=== PATIENT | female | born 1995 | race Caucasian/White ===

== ENCOUNTER 2017-08-04 18:24 | Inpatient (IN) | payer OTHER, MEDICAID ==
[2017-08-04 19:32] LABS: ABSOLUTE LYMPHOCYTES (AUTO) 1.3 10^3/uL (0.5-4.7); ABSOLUTE MONOCYTES (AUTO) 0.7 10^3/uL (0.1-1.4); ABSOLUTE NEUT (AUTO) 8.6 10^3/uL (1.7-8.2); BASOPHILS % (AUTO) 0.2 % (0-2); EOSINOPHILS % (AUTO) 0.1 % (0-6); HEMATOCRIT 33.5 % (36.0-47.0); HEMOGLOBIN 11.3 g/dL (12.0-15.5); LYMPHOCYTES % (AUTO) 12.5 % (13-45); MEAN CORPUSCULAR HEMOGLOBIN 32.7 pg (27.0-33.4); MEAN CORPUSCULAR HGB CONC 33.6 g/dL (32.0-36.0); MEAN CORPUSCULAR VOLUME 97 fl (80-97); MONOCYTES % (AUTO) 6.7 % (3-13); PLATELET COUNT 264 10^3/uL (150-450); RED BLOOD COUNT 3.45 10^6/uL (3.72-5.28); RED CELL DISTRIBUTION WIDTH 14.1 % (11.5-14.0); SEGMENTED NEUTROPHILS % (AUTO) 80.5 % (42-78); TOTAL CELLS COUNTED % (AUTO) 100 %; WHITE BLOOD COUNT 10.7 10^3/uL (4.0-10.5)
[2017-08-04 19:38] LABS: APPEARANCE,URINE CLOUDY; BILIRUBIN,URINE NEGATIVE (NEGATIVE); COLOR,URINE YELLOW; GLUCOSE, URINE NEGATIVE (NEGATIVE); KETONES,URINE NEGATIVE (NEGATIVE); LEUKOCYTE ESTERASE,URINE SMALL (NEGATIVE); NITRITE,URINE NEGATIVE (NEGATIVE); PROTEIN,URINE 30 mg/dL (NEGATIVE)
[2017-08-04] MEDS ORDERED: DINOPROSTONE 10 MG VAGINAL INSERT.SR PV PRN (19:38)
[2017-08-04] MEDS ORDERED: RINGERS SOLUTION,LACTATED 300 ML IV ONE (19:38)
[2017-08-04] MEDS ORDERED: RINGERS SOLUTION,LACTATED 1,000 ML IV PRN (19:38)
[2017-08-04] MEDS ORDERED: DINOPROSTONE 10 MG VAGINAL INSERT.SR ONE (19:42)
[2017-08-04 19:54] LABS: URINE AMPHETAMINES SCREEN NEGATIVE; URINE BARBITURATES SCREEN NEGATIVE; URINE BENZODIAZEPINES SCREEN NEGATIVE; URINE COCAINE SCREEN NEGATIVE; URINE MARIJUANA (THC) SCREEN NEGATIVE; URINE METHADONE SCREEN NEGATIVE; URINE PHENCYCLIDINE SCREEN NEGATIVE
--- NOTE | 2017-08-04 21:13 | Admission Physical ---
Datetime Report Generated by CPN: 08/04/2017 21:13 CURRENT ADMISSION Chief Complaint: Scheduled Induction of Labor Indication for Induction- Other: GDM Admit Impression : Induction of Labor Admit Plan: Admit to Unit; Initiate Labor Induction Protocol ALLERGIES Medication Allergies: No Medication Allergies: No Known Allergies (08/04/2017) Latex: No Latex Allergies OBSTETRICAL HISTORY EDC: 08/11/2017 00:00 : 1 Para: 0 Term: 0 : 0 SAB: 0 IAB: 0 Ectopic: 0 Livin Cesareans: 0 VBACs: 0 Multiple Births: 0 Gestational Diabetes: Yes Rh Sensitization: No Incompetent Cervix: No SKYLER: No Infertility: No ART Treatment: No Uterine Anomaly: No IUGR: No Hx Previous C/S: No Macrosomia: No Hx Loss/Stillborn: No PIH: No Hx : No Placenta Previa/Abruption: No Depression/PP Depression: No PTL/PROM: No Post Hemorrhage: No Current Procedures: Ultrasound; NST Obstetrical History Comments: G1 current SEE RECORDS Alcohol: No Marijuana : No Cocaine: No Other Illicit Drugs: No Cigarettes: Never Smoker. [id number] MEDICAL HISTORY Diabetes: Yes Diabetes Type: Gestational Diabetes Blood Transfusion: No Pulmonary Disease (Asthma, TB): No Breast Disease: No Hypertension: No Emergency Department Manager Surgery: No Heart Disease: No Hosp/Surgery: No Autoimmune Disorder: No Anesthetic Complications: No Kidney Disease: No Abnormal Pap Smear: No Neuro/Epilepsy: No Psychiatric Disorders: Yes Other Medical Diseases: No Hepatitis/Liver Disease: No Significant Family History: No Varicosities/Phlebitis: No Trauma/Violence : No Thyroid Dysfunction: No Medical History Comments: Previously on meds for depression. Not currently taking tachycardia during , pt reports increased hr up to 180 during , wore holter [id number], no concerns from sap sd analyst INFECTIOUS HISTORY Gonorrhea: No Genital Herpes: No Chlamydia: No Tuberculosis: No Syphilis: No Hepatitis: No HIV/AIDS Exposure: No Rash or Viral Illness: No HPV: No PHYSICAL EXAM General: Normal HEENT: Normal Neurologic: Normal Thyroid: Normal Heart: Normal Lungs: Normal Breast: Deferred Back: Normal Abdomen: Normal Genitourinary Exam: Normal Extremities: Normal DTRs: Normal Pelvic Type: Adequate Vital Signs: Reviewed VAGINAL EXAM Dilatation: 1 MEMBRANES Pooling: Negative Membranes: Intact FETUS A EGA: 39.0 Monitoring: External US Variability: Minimal - Undetectable to <=5bpm Decelerations: None FHR Category: Category I PLANS FOR LABOR AND DELIVERY Labor and Delivery: None Pain Management: Medications; Epidural Feeding Preference: Breast Benefit of Breast Feed Discussed: Yes Circumcision: N/A INFORMED CONSENT Signature: with User ID: [email or web address]
[2017-08-04] MEDS ORDERED: NALBUPHINE HCL INJ 10 MG/1 ML AMPULE INJ ONE (22:39)
[2017-08-04] MEDS ORDERED: PROMETHAZINE HCL INJ 25 MG/1 ML VIAL IV ONE (22:40)
[2017-08-04] MEDS ORDERED: NALBUPHINE HCL INJ 10 MG/1 ML AMPULE ONE (22:45)
[2017-08-04] MEDS ORDERED: PROMETHAZINE HCL INJ 25 MG/1 ML VIAL ONE (22:45)
[2017-08-05] MEDS ORDERED: ONDANSETRON HCL INJ/PF 4 MG/2 ML SDV ONE ×2 (01:21→10:22)
[2017-08-05] MEDS ORDERED: PROMETHAZINE HCL INJ 25 MG/1 ML VIAL IV ONE (01:43)
[2017-08-05] MEDS ORDERED: NALBUPHINE HCL INJ 10 MG/1 ML AMPULE INJ ONE (01:43)
[2017-08-05] MEDS ORDERED: PROMETHAZINE HCL INJ 25 MG/1 ML VIAL ONE (01:47)
[2017-08-05] MEDS ORDERED: NALBUPHINE HCL INJ 10 MG/1 ML AMPULE ONE (01:47)
[2017-08-05] MEDS ORDERED: ONDANSETRON HCL INJ/PF 4 MG/2 ML SDV IV ONE (10:19)
[2017-08-05] MEDS ORDERED: FENTANYL/BUPIVACAINE/NS/PF 200 MCG/100 ML RTUINJ EPI ONE (10:21)
[2017-08-05] MEDS ORDERED: EPHEDRINE SULFATE INJ 50 MG/1 ML AMPULE ONE (10:21)
[2017-08-05] MEDS ORDERED: BUPIVACAINE HCL 0.25 % INJ/PF (2.5 MG/1 ML) 30 ML VIAL ONE (10:21)
[2017-08-05] MEDS ORDERED: GLYBURIDE 1.25 MG PO SCH (10:30)
[2017-08-05] MEDS ORDERED: GLYBURIDE 2.5 MG TABLET PO ONE (11:00)
[2017-08-05] MEDS ORDERED: OXYTOCIN/NORMAL SALINE 20 UNIT/1,000 ML RTUINJ IV PRN ×2 (11:14→21:10)
[2017-08-05] MEDS ORDERED: MISOPROSTOL 0.2 MG TABLET ONE (11:17)
[2017-08-05] MEDS ORDERED: LIDOCAINE 1% INJ-PF (10 MG/ML) 30 ML SDV ONE (11:18)
[2017-08-05] MEDS ORDERED: OXYTOCIN/NORMAL SALINE 20 UNIT/1,000 ML RTUINJ ONE (11:18)
--- NOTE | 2017-08-05 14:54 | L&D Progress Notes ---
PROGRESS NOTES Datetime Report Generated by CPN: 08/05/2017 14:54 PROGRESS NOTE Impression: Reassuring Heart Rate Procedures: Sterile Vag Exam Plan: Continue Present Management; Induction Informed Consent Obtained: Vaginal Delivery Vital Signs : Reviewed Comment: Cooks cath out, SROM clear fluid Comfortable with epidural Continue with iol VAGINAL EXAM Dilatation: 5 Dilatation: 1 Effacement: 80 Station: 0 Contractions: every 2-3 MEMBRANES Pooling: Negative Membranes: Intact FETUS A FHR - Baseline: 130 Monitoring: External US Variability: Moderate 6-25bpm Accelerations: 15X15 Decelerations: None FHR Category: Category I : 39.0 SIGNATURE SIGNATURE: [id number];[id number] SIGNATURE: [id number] Assignment: Domi Hernandez MD Signature: with User ID: [email or web address] : with User ID: [email or web address]
[2017-08-05] MEDS ORDERED: CITRIC ACID/SODIUM CITRATE ORAL SOLN 15 ML UDCUP ONE (17:21)
[2017-08-05] MEDS ORDERED: GLYBURIDE 2.5 MG TABLET PO SCH (18:00)
[2017-08-05] MEDS ORDERED: IBUPROFEN 800 MG TABLET ONE (21:09)
[2017-08-05] MEDS ORDERED: MEASLES,MUMPS&RUBELLA VACC/PF 0.5 ML VIAL SUBCUT PRN (21:10)
[2017-08-05] MEDS ORDERED: ZOLPIDEM TARTRATE 5 MG TABLET PO PRN (21:10)
[2017-08-05] MEDS ORDERED: DIPH/PERTUSS(ACELL)/TETANUS VAC/PF 0.5 ML SYR (>=10YO) IM PRN (21:10)
[2017-08-05] MEDS ORDERED: ACETAMINOPHEN WITH CODEINE #3 TABLET PO PRN ×2 (21:10)
[2017-08-05] MEDS ORDERED: BENZOCAINE/MENTHOL AEROSOL SPRAY 56 ML TOP PRN (21:10)
[2017-08-05] MEDS ORDERED: DIBUCAINE 1% OINTMENT 28 GM TP PRN (21:10)
--- NOTE | 2017-08-05 21:37 | Warning Signs in Babies ---
VOD Warning Signs Datetime Report Generated by [facility]: 08/05/2017 21:37 VOD#608 -Warning Signs in Babies: Needs to be viewed. (08/04/2017 18:31:Jose Miguel Goins)
--- NOTE | 2017-08-05 23:15 | Warning Signs in Babies ---
VOD Warning Signs Datetime Report Generated by [facility]: 08/05/2017 23:15 VOD#608 -Warning Signs in Babies: Needs to be viewed. (08/05/2017 22:30:Jose Miguel Goins)
--- NOTE | 2017-08-05 23:39 | Warning Signs in Babies ---
VOD Warning Signs Datetime Report Generated by N: 08/05/2017 23:39 VOD#608 -Warning Signs in Babies: Needs to be viewed. (08/05/2017 22:50:Jose Miguel Goins)
[2017-08-06] MEDS: IBUPROFEN 800 MG TABLET PO SCH ×3 (06:17→22:20)
[2017-08-06 08:00] LABS: HEMATOCRIT 26.8 % (36.0-47.0); MEAN CORPUSCULAR HEMOGLOBIN 32.8 pg (27.0-33.4); MEAN CORPUSCULAR VOLUME 97 fl (80-97); PLATELET COUNT 208 10^3/uL (150-450); RED BLOOD COUNT 2.77 10^6/uL (3.72-5.28); RED CELL DISTRIBUTION WIDTH 14.3 % (11.5-14.0); WHITE BLOOD COUNT 12.9 10^3/uL (4.0-10.5)
[2017-08-06 08:02] LABS: HEMOGLOBIN 9.1 g/dL (12.0-15.5)
--- NOTE | 2017-08-06 09:03 | PDOC PROGRESS REPORT ---
Subjective-OB Progress Note for:: 08/06/17 Subjective: sp day #1 Pt doing well, tolerating diet, lochia is stable, pain well controlled, voiding without difficulty. Physical Exam (OB) Vital Signs: Temp Pulse Resp BP Pulse Ox 98.0 F 56 L 20 113/63 96 08/06/17 07:45 08/06/17 07:45 08/06/17 07:45 08/06/17 07:45 08/06/17 07:45 Intake & Output 08/05/17 08/06/17 08/07/17 06:59 06:59 06:59 Weight 70.8 kg - Lochia Lochia Amount: Small 10-25 ml Lochia Color: Rubra/Red - Abdomen Description: Tender, Soft Hernia Present: No Fundal Description: Firm, Midline Fundal Height: u/u - u/2 Objective-Diagnostic Laboratory: 08/06/17 06:57 08/06/17 06:57 WBC 12.9 H RBC 2.77 L Hgb 9.1 L D Hct 26.8 L MCV 97 MCH 32.8 MCHC 34.0 RDW 14.3 H Plt Count 208 Assessment and Plan(PN) - Assessment and Plan (1) Gestational diabetes mellitus (GDM) controlled on oral hypoglycemic drug Qualifiers: Trimester: third trimester Qualified Code(s): O24.415 - Gestational diabetes mellitus in , controlled by oral hypoglycemic drugs Is this a current diagnosis for this admission?: Yes Plan: yearly f/u (2) Shoulder (girdle) dystocia during labor and deliver, delivered Is this a current diagnosis for this admission?: Yes Plan: 20 seconds resolved with nick and suprapubic (3) Vaginal delivery Is this a current diagnosis for this admission?: Yes Plan: routine care - Time Spent with Patient Time with patient: Less than 15 minutes Critical Time spent with patient: Less than 15 minutes Medications reviewed and adjusted accordingly: Yes - Disposition Anticipated Discharge: Home Within: within 24 hours
[2017-08-06] MEDS: DOCUSATE SODIUM 100 MG CAPSULE PO SCH ×2 (09:25→18:28)
[2017-08-06] MEDS: FERROUS SULFATE 325 MG TABLET PO SCH ×2 (09:25→18:28)
[2017-08-06] MEDS: SENNOSIDES/DOCUSATE 8.6-50 MG 1 EACH TABLET PO SCH (09:25)
[2017-08-06] MEDS: PRENATAL VITAMIN W DHA CAPSULE PO SCH (09:25)
[2017-08-06] MEDS ORDERED: [UNRECOGNIZED DRUG - REMARK] PO SCH (10:00)
[2017-08-06] MEDS ORDERED: ACETAMINOPHEN 325 MG TABLET PO PRN (17:54)
[2017-08-06] MEDS ORDERED: SIMETHICONE 80 MG TAB.CHEW PO PRN (17:54)
[2017-08-06 20:10] VITALS: BP 116/68
[2017-08-07] MEDS: IBUPROFEN 800 MG TABLET PO SCH (06:29)
[2017-08-07] MEDS: SENNOSIDES/DOCUSATE 8.6-50 MG 1 EACH TABLET PO SCH (10:09)
[2017-08-07] MEDS: DOCUSATE SODIUM 100 MG CAPSULE PO SCH (10:09)
[2017-08-07] MEDS: FERROUS SULFATE 325 MG TABLET PO SCH (10:10)
[2017-08-07] MEDS: PRENATAL VITAMIN W DHA CAPSULE PO SCH (10:10)
--- NOTE | 2017-08-07 10:27 | PDOC DISCHARGE SUMMARY ---
Final Diagnosis Discharge Date: 08/07/17 Discharge Data - Discharge Medication Prescriptions: Ferrous Sulfate [Feosol 325 mg Tablet] 325 mg PO BID #60 tablet Ibuprofen [Motrin 800 mg Tablet] 800 mg PO Q8 #90 tablet Home Medications: Pnv No.95/Ferrous Fum/Folic AC [ Vitamins Tablet] 1 tab PO DAILY Docusate Sodium [Colace 100 mg Capsule] 100 mg PO BID capsule 08/07/17 Ferrous Sulfate [Feosol 325 mg Tablet] 325 mg PO BID #60 tablet 08/07/17 Ibuprofen [Motrin 800 mg Tablet] 800 mg PO Q8 #90 tablet 08/07/17 Reason(s) for Admission: Induction of Labor Procedures: NST Intrapartum Procedure(s): Spontaneous Vaginal Delivery Complication(s): Laceration-Vaginal Laceration-Degree: 1st - [place] Data Baby 1 Female Home with Mother: Yes - Diagnosis Test Laboratory: Temp Pulse Resp BP Pulse Ox 98.5 F 88 17 116/68 97 08/07/17 08:38 08/07/17 08:38 08/07/17 08:38 08/06/17 19:31 08/07/17 08:38 08/04/17 08/04/17 08/06/17 18:50 18:58 06:57 RBC 3.45 L 2.77 L Hgb 11.3 L 9.1 L D Hct 33.5 L 26.8 L Urine Opiates Screen NEGATIVE - Discharge information/Instructions Discharge Activity: Balance Activity w/Rest, Pelvic Rest Discharge Diet: Regular Disposition: HOME, SELF-CARE Follow up with: [facility] in: 4, Weeks
--- NOTE | 2017-08-17 11:53 | Delivery Summary ---
Del Sum A-C Datetime Report Generated by CPN: 08/17/2017 11:53 DELIVERY PERSONNEL DELIVERY PERSONNEL: [id number] Delivery Doctor:: Nancy Richardson CNM Labor and Delivery Nurse:: Jose Miguel Goins RN Labor and Delivery Nurse:: Carmita Goff RN Nursery Nurse:: Ladonna Dotson, RN MATERNAL INFORMATION Delivery Anesthesia: Epidural (Annotations: Data stored by [employer] [facility] on behalf of user) Medications After Delivery: Pitocin Drip 20 Units/1000ml NSS Estimated Blood Loss (ml): 450 Maternal Complications: None Provider Comments: Pt pushed well to complete, head delivered, loose nuchal X1, shoulders did not advance with gentle traction, pt repostioned, Rachel maneuver, suprapubic pressure applied, anterior shoulder released, body followed, infant to maternal abdomen, nursery called to bedside, cord clamped X2, infant cut free, by pts , infant with spontaneous cry and respirations, handed off to nursery staff. Spontaneous delivery of placenta via saucedo mechanism, appears intact, 3 VC, vagian and perineum inspected, superficial vaginal abrasions, repair of bilateral periuretheral lacs as above, heavier bleeding, rectal cytotec 1000 mcg. Hemostasis acheived with external fundal massage and IV pitocin, routine pp care, to nursery for monitoring. LABOR SUMMARY EDC: 08/11/2017 00:00 No. Babies in Womb: 1 Attempted: No Labor Anesthesia: Epidural LABOR INFORMATION Reason for Induction: Maternal Diabetes Onset of Labor: 08/05/2017 14:47 Complete Dilatation: 08/05/2017 18:04 Cervical Ripening Agents: Cervidil Oxytocin: Induction Group B Beta Strep: negative Steroids Given: None Reason Steroids Not Administered: Not Applicable MEMBRANES Membranes Rupture Method: Spontaneous Rupture of Membranes: 08/05/2017 14:47 Length of Rupture (hr): 5.78 Amniotic Fluid Color: Clear Amniotic Fluid Amount: Small Amniotic Fluid Odor: Normal STAGES OF LABOR Stage 1 hr: 3 Stage 1 min: 17 Stage 2 hr: 2 Stage 2 min: 30 Stage 3 hr: 0 Stage 3 min: 4 Total Time in Labor hr: 5 Total Time in Labor min: 51 VAGINAL DELIVERY Episiotomy: None Laceration #1: Periurethral Laceration Extension #1: N/A Laceration #2: None Laceration #3: None Laceration Repair: Yes Laceration Repair Note: bilateral periuretherals repaired with 1 stitch each. good hemostasis Sponge Count Correct: Yes Sharps Count Correct: Yes CSECTION DELIVERY Primary Indication: N/A Secondary Indication: N/A CSection Incidence: N/A Labor: N/A Elective: N/A CSection Incision: N/A BABY A INFORMATION Infant Delivery Date/Time: 08/05/2017 20:34 Infant Delivery Date/Time: 08/05/2017 20:34 Method of Delivery: Vaginal Born in Route : No : N/A Forceps: N/A Vacuum Extraction: N/A Shoulder Dystocia : Yes SHOULDER DYSTOCIA BABY A Delivery of Head: 08/05/2017 20:34 Time Head to Delivery : 0.0 1st Intervention to Resolve: McRobert's Maneuver 2nd Intervention to Resolve: Suprapubic Pressure Shoulder Dystocia Comments: 20 second shoulder PRESENTATION/POSITION BABY A Presentation: Cephalic Presentation: Cephalic Presentation: Cephalic Presentation: Cephalic Presentation: Cephalic Cephalic Presentation: Vertex Vertex Position: Left Occipital Anterior Breech Presentation: N/A PLACENTA INFORMATION BABY A Placenta Delivery Time : 08/05/2017 20:38 Placenta Delivery Time : 08/05/2017 20:38 Placenta Method of Delivery: Spontaneous Placenta Status: Delivered SCORES BABY A Heart Rate 1 min: >100 bpm Resp Effort 1 min: Good Cry Reflex Irritability 1 min: Cough or Sneeze or Pulls Away Muscle Tone 1 min: Some Flexion of Extremities Color 1 min: Blue/Pale Resuscitation Effort 1 min: Tactile Stimulation SCORE 1 MIN: 7 Heart Rate 5 min: >100 bpm Resp Effort 5 min: Good Cry Reflex Irritability 5 min: Cough or Sneeze or Pulls Away Muscle Tone 5 min: Active Motion Color 5 min: Body Mabel, Extremities Blue Resuscitation Effort 5 min: Tactile Stimulation SCORE 5 MIN: 9 INFORMATION BABY A Gestational Age at Delivery: 39.1 Gestational Status: Full Term- 39- 40.6 Weeks Infant Outcome : Liveborn Infant Condition : Stable Sex: Female IDENTIFICATION BABY A Verification Date/Time: 08/05/2017 21:05 ID Band Number: [id number] Mother's Name Verified: Yes Infant RN Verifying : K [place] RN/ R Goins RN WEIGHT/LENGTH BABY A Birthweight (gm): 3780 Weight (lb): 8 Infant Weight (oz): 5 Length (in): 20.50 Length (cm): 52.07 CORD INFORMATION BABY A No. Cord Vessels: 3 Nuchal Cord : Around Neck x1, Loose Cord Blood Taken: Yes-For Eval (Mom's Blood Type - or O+) Suction: None ASSESSMENT BABY A Complications: Shoulder Dystocia Physical Findings at Delivery: Caput Succedaneum; Molding of the Head; Bruising Skin to Skin: Yes Skin to Skin Time (min): 60 Order Entry Technician/ALS Called : No Transferred To: Nursery BABY B INFORMATION : N/A SIGNATURES Assignment: Domi Hernandez MD Signature: with User ID: Rianna : with User ID: [email or web address]
== END 2017-08-07 12:35 | disposition home or self-care (01) | DRG 775 ==
LOC: LR 18:24 → 2S 08-05 23:05
PROVIDERS: ADMIT Obstetrics & Gynecology; ATTEND Obstetrics & Gynecology
PROC: 10E0XZZ Delivery of Products of Conception, External Approach (ICD-10-PCS; principal; 2017-08-05)
PROC: 0HQ9XZZ Repair Perineum Skin, External Approach (ICD-10-PCS; 2017-08-05)
PROC: 3E0234Z Introduction of Serum, Toxoid and Vaccine into Muscle, Percutaneous Approach (ICD-10-PCS; 2017-08-07)
DX: O66.0 Obstructed labor due to shoulder dystocia (principal); O69.1XX0 Labor and delivery complicated by cord around neck, with compression, not applicable or unspecified; O24.425 Gestational diabetes mellitus in childbirth, controlled by oral hypoglycemic drugs; O70.0 First degree perineal laceration during delivery; O26.893 Other specified pregnancy related conditions, third trimester; Z3A.39 39 weeks gestation of pregnancy; Z67.41 Type O blood, Rh negative; Z37.0 Single live birth
CPT/HCPCS: 36415; 80307; 81005; 82962; 85025; 85027; 85461; 86592; 86850; 86870; 86900; 86901; 94760; C1726; J2300; J2405; J2550; J2590; J2790; J3490